=== PATIENT | female | born 1940 | race Caucasian/White ===

== ENCOUNTER → 2024-09-25 | Outpatient (CLI) | payer MEDICARE, BC, SELFPAY ==
[2024-09-25 13:39] LABS: Free T4 (Free Thyroxine) 1.24 ng/dL (0.89-1.76); Thyroid Stimulating Hormone 3.51 uIU/mL (0.55-4.78)
== END | disposition home or self-care (01) ==
LOC: COPL 12:48
PROVIDERS: PCP Family Medicine; Referring Provider Family Medicine; Visit Provider Family Medicine
DX: E03.9 Hypothyroidism, unspecified (principal)
CPT/HCPCS: 36415; 84439; 84443

== ENCOUNTER 2024-10-13 06:41 | Day surgery (SDC) | payer MEDICARE, BC, SELFPAY ==
[2024-10-11 16:52] VITALS: BMI 24.3
--- NOTE | 2024-10-12 07:00 | EKG_ITS ---
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
[2024-10-12 13:18] LABS: Basophils % (Auto) 1 % (0-2.5); Eosinophils # (Auto) 0.1 Thou/mm3 (0.0-0.5); Eosinophils % (Auto) 1 % (0-10); Hematocrit 36.5 % (36.0-46.0); Hemoglobin 11.9 g/dL (12.0-16.0); Immature Granulocytes % (Auto) 0 % (0-0); Immature Granulocytes Auto 0.01 Thou/mm3 (0.00-0.00); Lymphocytes # (Auto) 1.8 Thou/mm3 (1.0-4.8); Lymphocytes % (Auto) 37 % (10-50); Mean Corpuscular HGB Conc 32.6 g/dl (31.0-37.0); Mean Corpuscular Hemoglobin 31.5 pg (25.0-35.0); Mean Corpuscular Volume 97 fL (80-100); Monocytes # (Auto) 0.5 Thou/mm3 (0.0-0.8); Monocytes % (Auto) 11 % (0-12); Neutrophils # (Auto) 2.4 Thou/mm3 (1.8-7.7); Neutrophils % (Auto) 50 % (37-80); Nucleated Red Blood Cell % 0 /100 WBC (0); Platelet Count 151 Thou/mm3 (140-440); RDW Standard Deviation 49.5 fL (36.4-46.3); Red Blood Count 3.78 Miln/mm3 (4.00-5.20); White Blood Count 4.9 Thou/mm3 (3.6-11.0)
[2024-10-12 13:39] LABS: Partial Thromboplastin Time 24.2 Seconds (22.0-36.0); Prothrombin Time 11.2 Seconds (9.0-12.2)
[2024-10-12 13:40] LABS: Anion Gap 6 (7-16); BUN/Creatinine Ratio 16 Ratio (12-20); Blood Urea Nitrogen 16 mg/dL (9-23); Calcium 9.4 mg/dL (8.3-10.6); Carbon Dioxide 23.5 mMol/L (20.0-31.0); Chloride 109 mMol/L (98-107); Estimated Creatinine Clearance 42.2 mL/min (>60); Glucose 96 mg/dL (74-106); Osmolality,Calculated 276 (275-295); Potassium 4.2 mMol/L (3.4-5.1); Sodium 138 mMol/L (136-145); eGFR 56 See Note
[2024-10-13] VITALS (15 sets, daily range): BP systolic 128–167; BP diastolic 53–86; PULSE 64–84; RESP 12–20; TEMP 36.7–37; O2SAT 92–97; BMI 24.5
[2024-10-13] MEDS: HYDROCORTISONE SOD SUCC INJ 100 MG VIAL IV (07:42)
[2024-10-13] MEDS: FAMOTIDINE INJ 10 MG/ML VIAL 2 ML 20 MG IVP (07:42)
[2024-10-13] MEDS: DiphenhydrAMINE INJ 50 MG/ML VIAL IVP (07:42)
[2024-10-13] MEDS: HYDROcodone/APAP 10/325 TAB PO (12:43)
--- NOTE | 2024-10-13 15:16 | ESOP_ITS ---
RE: AUSTIN LÓPEZ : 1940 DATE OF OPERATION: 10/13/2024 PROCEDURE PERFORMED: 1. Diagnostic left heart cardiac catheterization, selective coronary angiogram, left ventricular angiogram, CPT 09103. 2. Ultrasound-guided access, right radial artery. 3. Iliofemoral angiogram. 4. Conscious sedation 1 hour duration. DIAGNOSES: Coronary artery disease, abnormal stress test, angina pectoris, previous stent placement. HISTORY AND INDICATIONS: The patient is an 84-year-old female with past medical history of CAD, stent placement in the LAD. She has been doing well until recently. She has had recurrent chest tightness, shortness of breath on exertion. Nuclear scan and stress test was abnormal showed evidence of significant perfusion defect suspicious for coronary artery disease and obstructive disease, hence coronary angiogram, cardiac catheterization recommended to assess the patient is a candidate for intervention and revascularization. DESCRIPTION OF PROCEDURE: The patient brought to the cardiac catheterization laboratory. She was given 2 mg of Versed and 50 mcg fentanyl for sedation. Right radial approach initially was taken. Right radial artery cannulated by micropuncture technique. Ultrasound guidance was used and 6-Uzbek Glidesheath was introduced. I was unable to advance the Glidewire hence I did angiogram of the right radial artery showed evidence of radial artery extreme tortuosity almost 180-degree loop in the small vessel, hence I decided to pursue a femoral approach. Next, a right femoral approach was taken. Right femoral artery was cannulated by micropuncture technique after local anesthesia and 5-Uzbek sheath introduced. Selective right and left coronary angiogram was performed using FR4, FL4 diagnostic catheters. Left heart catheterization and LV angiogram performed by FR4 diagnostic catheters. Subsequently, iliofemoral angiogram performed. Site of cannulation was close to bifurcation, calcified artery hence manual compression was applied. Cardiac catheterization showed the following findings. HEMODYNAMICS: Left ventricular pressure is 160/16 mmHg. Aortic pressure 160/60 mmHg. No gradient across the aortic valve. Left ventricular angiogram showed normal left ventricular wall motion, ejection fraction 70%. Coronary artery angiogram showed following findings: Right coronary artery large and dominant appeared normal. Left coronary system. Left main coronary artery is normal. Left anterior descending artery showed a stent in the mid LAD after diagonal branch appears normal. No restenosis. Diagonal branch showed evidence of mild stenosis, 20% to 30% narrowing. Circumflex artery is non-dominant gives off one large obtuse marginal branch appears normal. SUMMARY OF FINDINGS: 1. Widely patent stent involving mid left anterior descending artery. 2. Normal left ventricular systolic function, EF of 70%. 3. Widely patent RCA, circumflex artery no_ significant progression of CAD. 4. Mild disease involving diagonal branch, insignificant. RECOMMENDATIONS: Continue maximum medical management. The patient's symptoms are due to stress. Reassured by excellent prognosis. DT: 12:54:28 TT: 15:15:00 Ref: [id number] - TID: [id number] [facility]
== END 2024-10-13 14:30 | disposition home or self-care (01) ==
PROVIDERS: PCP Family Medicine; Referring Provider Internal Medicine Cardiovascular Disease; Visit Provider Internal Medicine Cardiovascular Disease
PROC: (CPT 93458; principal; 2024-10-13 07:30)
DX: I25.118 Atherosclerotic heart disease of native coronary artery with other forms of angina pectoris (principal); Z95.5 Presence of coronary angioplasty implant and graft
CPT/HCPCS: 93458; G0278; 36415; 80048; 85025; 85610; 85730; 93005; 99152; 99153; A4649; C1769; C1887; C1894; J0360; J0461; J1200; J1643; J1720; J2250; J2310; J2371; J3010; J3490; Q9967; A9270; J1644; J2305

== ENCOUNTER → 2024-12-27 | Outpatient (CLI) | payer MEDICARE, BC, SELFPAY ==
[2024-12-27 14:55] LABS: Collection Type, Urine Clean Catch
[2024-12-27 16:58] LABS: Bacteria,Urine 1+; Bilirubin,Urine Negative (Negative); Blood,Urine Negative (Negative); Clarity,Urine Turbid (Clear/Hazy); Color,Urine Yellow (Lt Yel-Yel); Glucose, Urine Negative (Negative); Hyaline Casts,Urine < 1 /hpf (0-1); Ketones,Urine Negative (Negative); Leukocyte Esterase,Urine Positive (Negative); Nitrite,Urine Positive (Negative); PH,Urine 5.5 (5.0-7.0); Protein,Urine Trace (Neg - Trace); RBC,Urine 1 /hpf (0-3); Specific Gravity,Urine 1.026 (1.001-1.035); Squamous Epithelial Cell,Urine 5 /hpf (0-5); Urobilinogen,Urine Negative mg/dL (0.0-1.0); WBC,Urine 23 /hpf (0-5)
== END | disposition home or self-care (01) ==
LOC: SLDO 14:48
PROVIDERS: Referring Provider Family Medicine; Visit Provider Family Medicine
DX: N30.00 Acute cystitis without hematuria (principal)
CPT/HCPCS: 81001; 87077; 87086; 87186

== ENCOUNTER → 2025-01-19 | Outpatient (CLI) | payer MEDICARE, BC, SELFPAY ==
[2025-01-19 09:49] LABS: Cardiac Risk Estimate 3.4 RATIO (3.7-5.6); Cholesterol 137 mg/dL (132-200); HDL Cholesterol 40 mg/dL (40-60); LDL Cholesterol,Calculated 73 mg/dL (0-130); Triglycerides 120 mg/dL (30-150)
== END | disposition home or self-care (01) ==
LOC: COPL 08:38
PROVIDERS: PCP Family Medicine; Referring Provider Internal Medicine Cardiovascular Disease; Visit Provider Internal Medicine Cardiovascular Disease
DX: I25.118 Atherosclerotic heart disease of native coronary artery with other forms of angina pectoris (principal); E78.00 Pure hypercholesterolemia, unspecified; Z95.5 Presence of coronary angioplasty implant and graft
CPT/HCPCS: 36415; 80061

== ENCOUNTER 2025-03-31 18:30 | Emergency (ER) | payer MEDICARE, BC, SELFPAY ==
[2025-03-31 18:36] VITALS: BP 145/86; PULSE 74; RESP 18; TEMP 37.2; O2SAT 97
--- NOTE | 2025-03-31 18:37 | PD.EDHA ---
ED Headache RME/HPI General Chief Complaint: Headache Stated Complaint: HEADACHE Time Seen by Provider: 03/31/25 19:13 Arrival date/time: 03/31/25 18:30 RME / HPI RME / HPI Narrative: This section includes all my notes and documentations, including HPI, PE, and ED course. Bradley Brandon MD HPI: 84 y/o female with Hx of Hypercholesterolemia, Hypertension, Kidney Stones, Endometriosis, Arthritis, Hypoglycemia, Depression, and Coronary Stent presents to ED BIBA from home c/o severe headache x 4 days and intermittent chest pain x 3 days. Patient's chest pain began suddenly while driving her daughter from her knee replacement surgery. It lasted 10 minutes before resolving but states the pain was the worst it had been over the span of the [address] Joselyn Lindsay, who attributed her symptoms to dehydration, and advised patient to see Dr. Braxton, her funds development director, if chest pain persisted. She was informed that no clot was present and a new stent was not needed at this time. Chest pain is now a 0/10 and has been more mild over the last 2 days. Patient's family bought her Liquid IV electrolyte supplement, but she was not able to keep it down. She also reports associated abdominal pain and back pain. Patient noted her blood pressure at 220/80 something and took her Avapro at 6:05 PM, approximately 10 minutes prior to EMS arrival. No other complaints. ROS: All negative except as documented in HPI. Physical Exam: General: Alert and oriented. No acute distress when remaining still. High BP noted. Eyes: Conjunctivae and lids clear. EOMI. PERRL. ENT: No nasal congestion. Pharynx normal. Tympanic membrane normal bilaterally. Neck: Supple. No carotid bruit. No JVD. Heart: RRR. Lungs: No respiratory distress. Good air movement. No significant rhonchi, wheezing, rales. Chest: No tenderness. Abdomen: Soft with diffuse tenderness, difficult to localize. Normal bowel sounds. No distension. No rebound or guarding. Back: No CVA tenderness. Legs: No clubbing, cyanosis, edema. Skin: Warm and dry. Neuro: Alert and oriented X 3. Cranial Nerves II-XII grossly intact. No peripheral motor deficits. I reviewed EMS notes. I reviewed all diagnostic test results. My interpretation of the EKG: Sinus rhythm (71 bpm) with left BBB, no change from previous EKG. My interpretation of the chest x-ray is NAD. My review of the Head/Brain CT report is NAD. My review of the Chest/Abdomen/Pelvis CT report is: Suspicious for small gallstones. Perinephric stranding, consider urinary tract infection. My review of the Gall Bladder US report is: Primary hepatocellular disease. Blood tests unremarkable. UA showed 3+ bacteria and yeast. COVID/influenza negative. At this point, diagnoses include UTI and headache and gallstones and high BP. Treatment here included Tylenol w/ Codeine, Zofran, Rocephin, Catapres, Diflucan. Significant improvement noted. Recommended more outpatient care. Based on my best medical judgment, made decision no further evaluation or treatment indicated at this time. Patient understands and agrees to the discharge instructions customized and printed, see below. Discharge instructions from Dr. Brandon: 1. After extensive evaluation, there is no life-threatening condition. Such as stroke or brain tumor or heart attack. But you have severe UTI (early kidney infection) and gallstones. 2. Take cefdinir to kill the germs causing your UTI.? Increase oral fluid to flush it out.? Maintain clear urine.? If dark or yellow, increase oral fluid. 3. Zofran for nausea/vomiting.? 4 You need gallbladder to help digest fatty foods. So avoid all fatty and oily and greasy and buttery and dairy foods.? This usually means take out and fast food restaurants. Tylenol with codeine for severe pain.?? 5.. See a private doctor on 04/02/2025 for recheck.? Ask to review all test results and official radiology reports, to make sure you receive all necessary follow-ups and monitoring, including final urine culture results from today. And if you are considering elective surgery for your gallbladder, ask for referral to see a surgeon. 6. Seek immediate medical care with worsening, fever, or with any concerns. Bradley Brandon MD Related Data Home Medications ?Medication ?Instructions ?Recorded ?Confirmed [place]-3 Fatty Acids (OTC) * (FISH 500 mg PO BID #0 caps 11/14/15 OIL (OTC) *) ergocalciferol (vitamin D2) 1,250 ##24 11/14/15 mcg (50,000 unit) capsule (Vitamin D2) aspirin 81 mg tablet,delayed 81 mg PO QDAY 08/25/23 10/13/24 release famotidine 40 mg tablet 20 mg PO QDAY 08/25/23 10/13/24 hydrocodone 10 mg-acetaminophen 0.5 tab PO PRN PRN Pain 08/25/23 10/13/24 325 mg tablet levothyroxine 75 mcg tablet 50 mcg PO QDAY 08/25/23 10/13/24 pantoprazole 40 mg tablet,delayed 40 mg PO QDAY 08/25/23 10/13/24 release docusate sodium 50 mg capsule 50 mg PO PRN PRN Constipation 10/13/24 10/13/24 escitalopram oxalate 10 mg tablet 10 mg PO QDAY 10/13/24 10/13/24 irbesartan 150 mg tablet 150 mg PO QDAY 10/13/24 10/13/24 magnesium 200 mg tablet 400 mg PO QDAY 10/13/24 10/13/24 mecobalamin (vitamin B12) 1,000 1,000 mcg PO DAILY 10/13/24 10/13/24 mcg chewable tablet (B12 Active) Previous Rx's ?Medication ?Instructions ?Recorded acetaminophen 300 mg-codeine 30 mg 2 tab PO Q8H PRN pain #20 tabs 03/31/25 tablet cefdinir 300 mg capsule 300 mg PO BID #14 caps 03/31/25 fluconazole 200 mg tablet 200 mg PO ONCE PM 7 weeks #2 tabs 03/31/25 (Diflucan) ondansetron 4 mg disintegrating 4 mg PO TID PRN nausea and 03/31/25 tablet vomiting 30 days #10 tabs Allergies Allergy/AdvReac Type Severity Reaction Status Date / Time Nlgonmb-REH-AcE Reductase Allergy Mild Gastrointestinal Verified 08/25/23 08:47 Inhibitor Upset codeine AdvReac Mild Nausea Verified 08/25/23 08:47 CONTRAST DYE Allergy Severe Rash Uncoded 08/25/23 08:47 Review of Systems Review of Systems Systems Reviewed: All systems reviewed, normal except as documented Past Medical History Past Medical History CARDIAC: Positive Cardiac Disorders, Hypercholesterolemia and Hypertension (takes medication PRN) GENITOURINARY: Positive Genitourinary Disorders and Kidney Stones REPRODUCTIVE: Positive Endometriosis and Previous Pregnancies (4) MUSCULOSKELETAL: Positive Musculoskeletal Disorders and Arthritis ENDOCRINE: Positive Endocrine Disorders and Hypoglycemia HEMATOLOGIC: Positive Blood Disorders and Anemia (resolved) PSYCHO/SOCIAL: Positive Depression (recent family loss) OTHER HISTORY: Positive Radiation Therapy (for basal cell carcinoma skin CA on chest 2022) and Cancer Surgical History SURGICAL: Positive Cardiac Surgery, Coronary Stent (X1), Angiogram, Abdominal Surgery, Gastric Bypass Surgery, Joint Replacement, Hysterectomy and Section (x4) ED Exam Narrative Physical exam: Refer to HPI above Course Course Course Narrative: CXR is ordered for determining the etiology of shortness of breath. Quality Measures none Orders Category Date Time Status Bedside COVID-19 Antigen Test NOW Care 03/31/25 18:46 Active Bedside Influenza A&B Antigen Test NOW Care 03/31/25 18:46 Completed EKG (ED ONLY) *Do not use* NOW Care 03/31/25 18:47 Completed Straight [In and Out Catheter] X1 Care 03/31/25 20:[address] chest abdomen pelvis wo Stat Exams 03/31/25 18:[address] head/brain wo con Stat Exams 03/31/25 18:47 Completed EKG (ED Only) Stat Exams 03/31/25 18:46 Draft US gall bladder Stat Exams 03/31/25 18:48 Completed XR chest 1V portable Stat Exams 03/31/25 18:47 Completed Amylase Stat Lab 03/31/25 19:01 Completed Bilirubin,Direct Stat Lab 03/31/25 19:01 Completed CBC Stat Lab 03/31/25 19:01 Completed CMP [Comprehensive Metabolic Panel] Stat Lab 03/31/25 19:01 Completed Free T4 (Free Thyroxine) Stat Lab 03/31/25 19:01 Completed Lipase Stat Lab 03/31/25 19:01 Completed Magnesium Stat Lab 03/31/25 19:01 Completed TSH [Thyroid Stimulating Hormone] Stat Lab 03/31/25 19:01 Completed Troponin I Stat Lab 03/31/25 19:01 Completed UA, C/S IF [Urinalysis, C/S if Indicated] Stat Lab 03/31/25 20:11 Completed Urine Culture Stat Lab 03/31/25 20:11 Received ACETAMINOPHEN w/COD 300-30 [Tylenol w/Cod #3] Med 03/31/25 18:45 Discontinued 2 tab PO X1 ONE Fluconazole/Ns 200 mg Ivpb [Diflucan/Ns Ivpb] Med 03/31/25 21:13 Discontinued 200 mg in 100 ml IV X1 Ondansetron Odt [Zofran Odt] Med 03/31/25 18:45 Discontinued 4 mg PO X1 ONE Sodium Chloride 0.9% 1000 ml [Ns] 1,000 ml Med 03/31/25 20:16 Discontinued IV 999 mls/hr cefTRIAXone/D5w 1gm IV premix [Rocephin/D5w 1gm IV Med 03/31/25 21:12 Discontinued premix] 1 g in 50 ml IV X1 cloNIDine HCL [Catapres] Med 03/31/25 20:15 Discontinued 0.2 mg PO X1 ONE Vital Signs Vital signs: Vital Signs Temperature 98.9 F 03/31/25 18:36 Pulse Rate 74 03/31/25 18:36 Respiratory Rate 18 03/31/25 18:36 Blood Pressure 145/86 H 03/31/25 18:36 Pulse Oximetry (%) 97 03/31/25 18:36 Oxygen Delivery Method Room Air 03/31/25 18:36 Headache MDM Narrative MDM Narrative:: Scribe Attestation: Joyce Lovett, am scribing for and in the presence of Dr. Brandon. Provider Notation: Although this document has been carefully reviewed, there may still be some phonetic and other typographical errors.? These errors are purely grammatical due to imperfections in the software program and should not be construed in any way to? compromise the substance of the patient's medical care during this visit. 84 y/o female with Hx of Hypercholesterolemia, Hypertension, Kidney Stones, Endometriosis, Arthritis, Hypoglycemia, Depression, and Coronary Stent presents to ED BIBA from home c/o severe headache x 4 days and intermittent chest pain x 3 days. Patient's chest pain began suddenly while driving her daughter from her knee replacement surgery. It lasted 10 minutes before resolving but states the pain was the worst it had been over the span of the [address] Joselyn Lindsay, who attributed her symptoms to dehydration, and advised patient to see Dr. Braxton, her funds development director, if chest pain persisted. She was informed that no clot was present and a new stent was not needed at this time. Chest pain is now a 0/10 and has been more mild over the last 2 days. Patient's family bought her Liquid IV electrolyte supplement, but she was not able to keep it down. She also reports associated lower abdominal pain and back pain. Patient noted her blood pressure at 220/80 something and took her Avapro at 6:05 PM, approximately 10 minutes prior to EMS arrival. No other complaints. Patient data External records reviewed:: [facility] previous records (No prior ED records available for review.) and EMS form Clinical information provided by:: patient and EMS Social determinants that could affect healthcare access:: none Patient has the following chronic illnesses:: Hypercholesterolemia, Hypertension, Kidney Stones, Endometriosis, Arthritis, Hypoglycemia, Depression How is presenting disease/condition affected by chronic disease/condition?: exacerbated by Evaluation data The following diagnostics were reviewed and interpreted by me:: EKG tracing(s) (My interpretation of the EKG: Sinus rhythm (71 bpm) with left BBB, no change from previous EKG. Bradley Brandon MD) Lab and/or radiology exams considered but not ordered:: None Interpretation Summary: I reviewed all diagnostic test results. My interpretation of the EKG: Sinus rhythm (71 bpm) with left BBB, no change from previous EKG. My interpretation of the chest x-ray is NAD. My review of the Head/Brain CT report is NAD. My review of the Chest/Abdomen/Pelvis CT report is: Suspicious for small gallstones. Perinephric stranding, consider urinary tract infection. My review of the Gall Bladder US report is: Primary hepatocellular disease. Blood tests unremarkable. UA showed 3+ bacteria and yeast. COVID/influenza negative. Medications / Prescriptions Medications or Prescriptions considered but not ordered:: None Medication administrations:: Medication Administration History Discontinued Medications Acetaminophen/Codeine Phosphate (Acetaminophen W/Cod 300-30 Tablet) 2 tab PO X1 ONE Stop: 03/31/25 18:46 Last Admin: 03/31/25 20:00 Dose: 2 tab Documented By: EE Clonidine (Clonidine Hcl 0.1 Mg Tablet) 0.2 mg PO X1 ONE Stop: 03/31/25 20:16 Last Admin: 03/31/25 20:33 Dose: 0.2 mg Documented By: EE Sodium Chloride (Ns) 1,000 mls @ 999 mls/hr IV .Q1H1M ONE Stop: 03/31/25 21:16 Last Infusion: 03/31/25 21:44 Dose: Infused Documented By: Admin: 03/31/25 20:34 Dose: 999 mls/hr Documented By: EE Ceftriaxone Sodium/Dextrose (Rocephin/D5w 1gm Iv Premix) 1 g in 50 mls @ 100 mls/hr IV X1 ONE Stop: 03/31/25 21:41 Last Infusion: 03/31/25 22:22 Dose: Infused Documented By: Admin: 03/31/25 21:41 Dose: 100 mls/hr Documented By: CB Fluconazole (Diflucan/Ns Ivpb) 200 mg in 100 mls @ 100 mls/hr IV X1 ONE Stop: 03/31/25 22:12 Last Admin: 03/31/25 22:51 Dose: 100 mls/hr Documented By: CVL Ondansetron HCl (Ondansetron Odt 4 Mg Tabrap) 4 mg PO X1 ONE; Protocol Stop: 03/31/25 18:46 Last Admin: 03/31/25 20:00 Dose: 4 mg Documented By: EE Tylenol with Codeine, Zofran, Rocephin, Catapres, Diflucan. Consultations Consultation(s) initiated? (list below): No Diagnosis Differential diagnosis headache: migraine, tension headache, subarachnoid hemorrhage, headache, meningitis, sinusitis and other (Costochondritis, Pleurisy, GERD, Gall Stone) Most likely diagnosis given after review of the tests above:: diagnoses include UTI and headache and gallstones and high BP. Admission Indicated Admission indicated?: not indicated Explain why admission is indicated or not indicated:: With significant improvement, there was no indication for admission. Admission Request Was there a request for admission?: No Disposition Plan Disposition Plan: Discharge Discharge Attestation Discharge Attestation: The patient and all family members were given an opportunity to ask questions and understood the discharge instructions. Discharge instructions specifically effects, indications for sooner follow up or return to the emergency department, and the expected course of current diagnosis. Patient condition: Stable Discharge Plan Plan Patient Disposition: HOME (Self Care) Prescriptions/Referrals Prescriptions/Med Rec: New acetaminophen-codeine 300-30 mg tablet 2 tab PO Q8H MDD 6 PRN (Reason: pain) Qty: 20 0RF ondansetron 4 mg tablet,disintegrating 4 mg PO TID PRN (Reason: nausea and vomiting) 30 Days Qty: 10 0RF cefdinir 300 mg capsule 300 mg PO BID Qty: 14 0RF fluconazole [Diflucan] 200 mg tablet 200 mg PO ONCE PM 49 Days Qty: 2 0RF Rx Instructions: Take one pill once then repeat after 7 days. No Action ergocalciferol (vitamin D2) [Vitamin D2] 50,000 UNIT capsule Qty: 24 [place]-3 Fatty Acids (OTC) * (FISH OIL (OTC) *) 500 MG capsule 500 mg PO BID Qty: 0 famotidine 40 mg tablet 20 mg PO QDAY Patient Comments: TAKE ONE TABLET BY MOUTH EVERY DAY AT BED TIME HEARTBURN hydrocodone-acetaminophen 10-325 mg tablet 0.5 tab PO PRN PRN (Reason: Pain) Patient Comments: TAKE ONE TABLET BY MOUTH EVERY 4 TO 6 HOURS NEEDED FOR PAIN aspirin 81 mg Tablet,Delayed Release (Dr/Ec) 81 mg PO QDAY levothyroxine 75 mcg tablet 50 mcg PO QDAY Patient Comments: TAKE ONE TABLET BY MOUTH EVERY MORNING ON EMPTY STOMACH FOR THYROID pantoprazole 40 mg tablet,delayed release (DR/EC) 40 mg PO QDAY Patient Comments: TAKE ONE TABLET BY MOUTH EVERY DAY HEARTBURN FOR GASTRITIS docusate sodium 50 mg Capsule 50 mg PO PRN PRN (Reason: Constipation) magnesium 200 mg Tablet 400 mg PO QDAY escitalopram oxalate 10 mg Tablet 10 mg PO QDAY mecobalamin (vitamin B12) [B12 Active] 1,000 mcg Tablet,Chewable 1,000 mcg PO DAILY irbesartan 150 mg Tablet 150 mg PO QDAY Referrals: No Primary/Family,Physician [Referring Provider] - In 1 week Problem List Clinical Impression: UTI (urinary tract infection), Gallstones Patient/Caregiver Discharge Instructions Discharge Activity: activity as tolerated Education Materials: ED Gallstones with Biliary Colic, ED CYSTITIS Female Adult Additional Instructions: Discharge instructions from Dr. Brandon: 1. After extensive evaluation, there is no life-threatening condition. Such as stroke or brain tumor or heart attack. But you have severe UTI (early kidney infection) and gallstones. 2. Take cefdinir to kill the germs causing your UTI.? Increase oral fluid to flush it out.? Maintain clear urine.? If dark or yellow, increase oral fluid. 3. Zofran for nausea/vomiting.? 4 You need gallbladder to help digest fatty foods. So avoid all fatty and oily and greasy and buttery and dairy foods.? This usually means take out and fast food restaurants. Tylenol with codeine for severe pain.?? 5.. See a private doctor on 04/02/2025 for recheck.? Ask to review all test results and official radiology reports, to make sure you receive all necessary follow-ups and monitoring, including final urine culture results from today. And if you are considering elective surgery for your gallbladder, ask for referral to see a surgeon. 6. Seek immediate medical care with worsening, fever, or with any concerns. Print Language: Divehi Stand Alone Forms: [employer] Info., Patient Portal Info Letter
--- NOTE | 2025-03-31 18:46 | EKG_ITS ---
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pdf
--- NOTE | 2025-03-31 18:47 | XR_ITS ---
Examination: CT chest, without intravenous contrast. CT abdomen, without intravenous contrast. CT pelvis, without intravenous contrast. 2-D sagittal and coronal reconstructions. 3-D reconstructions. Date and time of exam:March 31, 2025, 1939 hours INDICATIONS: Chest and abdominal pain beginning 3 days ago CTDI vol (mgy) 11 DLP (MGycm)831 Technique: Multiple CT images, 3.0 mm slice thickness, obtained chest, abdomen, pelvis, with the high-resolution 64 slice scanner.. Sagittal and coronal 2-D reconstructions are obtained. 3-D reconstructions Low dose protocols were performed. One or more of the following dose reduction techniques were used; automated exposure control, adjustment of the mA and/or KV according to patient size, use of iterative reconstruction technique. 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
--- NOTE | 2025-03-31 18:47 | XR_ITS ---
Examination: AP chest single view TECHNIQUE: AP portable semiupright chest single view Date and time: March 31, 2025 at 1748 hours INDICATIONS: Shortness of breath chest pain radiating 3 days ago. FINDINGS: Mild prominence left ventricle No pneumonia or pulmonary edema Prominent osteopenia IMPRESSION: No pneumonia or pulmonary edema
--- NOTE | 2025-03-31 18:47 | XR_ITS ---
Examination: CT brain head without contrast. 2-D sagittal coronal reconstructions Date and time of exam:March 31, 2025 1937 hours Headaches beginning 3 days ago CTDI: vol (mGy):51 DLP: (mGycm): 987 Technique: Multiple CT axial sections of the brain have been obtained, 5 mm slice thickness. Contrast has not been administered. 2-D sagittal, coronal reconstructions have been obtained Low dose protocols were performed. One or more of the following dose reduction techniques were used; automated exposure control, adjustment of the mA and/or KV according to patient size, use of iterative reconstruction technique. Findings: No significant ventricular enlargement. Intra-axial or extra-axial hemorrhage density is not seen. No mass effect or midline shift Basal cisterns are not remarkable. Fourth ventricle is midline. Cranial vault intact. Impression: Negative for acute hemorrhage, mass effect or midline shift
--- NOTE | 2025-03-31 18:48 | XR_ITS ---
Examination: Abdomen sonogram, Limited Date and time of exam: March 31, 2025 2135 hours INDICATIONS: Right upper abdominal pain beginning 3 weeks ago Technique: Real-time perkins scale transabdominal sonographic images of the upper abdomen obtained. Findings: Normal gallbladder Normal common bile duct 0.4 cm Pancreatic head 2.5 cm Liver 13.3 cm fatty infiltration monitor contour Normal hepatopedal portal venous flow Patent IVC IMPRESSION: Primary hepatocellular disease
[2025-03-31 19:10] LABS: Basophils % (Auto) 1 % (0-2.5); Eosinophils % (Auto) 1 % (0-10); Hematocrit 32.2 % (36.0-46.0); Immature Granulocytes % (Auto) 0 % (0-0); Immature Granulocytes Auto 0.01 Thou/mm3 (0.00-0.00); Lymphocytes # (Auto) 0.7 Thou/mm3 (1.0-4.8); Lymphocytes % (Auto) 22 % (10-50); Mean Corpuscular HGB Conc 34.2 g/dl (31.0-37.0); Mean Corpuscular Hemoglobin 31.9 pg (25.0-35.0); Mean Corpuscular Volume 93 fL (80-100); Monocytes # (Auto) 0.4 Thou/mm3 (0.0-0.8); Monocytes % (Auto) 12 % (0-12); Neutrophils % (Auto) 64 % (37-80); Nucleated Red Blood Cell % 0 /100 WBC (0); Platelet Count 142 Thou/mm3 (140-440); RDW Standard Deviation 45.5 fL (36.4-46.3); Red Blood Count 3.45 Miln/mm3 (4.00-5.20); White Blood Count 3.2 Thou/mm3 (3.6-11.0)
[2025-03-31 19:27] VITALS: BMI 24.3
[2025-03-31 19:37] LABS: Alanine Aminotransferase 10 U/L (10-49); Albumin, Serum 3.8 gm/dL (3.4-4.8); Albumin/Globulin Ratio 1.8 (1.2-2.2); Alkaline Phosphatase 75 U/L (46-116); Amylase 57 U/L (30-118); Anion Gap 9 (7-16); Aspartate Amino Transferase 16 U/L (0-34); BUN/Creatinine Ratio 15 Ratio (12-20); Bilirubin,Direct 0.2 mg/dL (0.0-0.3); Bilirubin,Total 0.5 mg/dL (0.3-1.2); Blood Urea Nitrogen 15 mg/dL (9-23); Calcium 8.6 mg/dL (8.3-10.6); Calcium (Corrected) 8.8 mg/dL (8.5-10.1); Carbon Dioxide 25.9 mMol/L (20.0-31.0); Chloride 105 mMol/L (98-107); Estimated Creatinine Clearance 42.2 mL/min (>60); Globulin 2.1 gm/dL (2.3-3.5); Glucose 160 mg/dL (74-106); Lipase 28 U/L (12-53); Magnesium 1.9 mg/dL (1.6-2.6); Osmolality,Calculated 283 (275-295); Potassium 4.5 mMol/L (3.4-5.1); Sodium 140 mMol/L (136-145); Thyroid Stimulating Hormone 8.16 uIU/mL (0.55-4.78); Total Protein 5.9 gm/dL (5.7-8.2); Troponin I < 0.020 ng/mL (0.0-0.045); eGFR 56 See Note
[2025-03-31] MEDS: ONDANSETRON ODT 4 MG TABRAP PO (20:00)
[2025-03-31] MEDS: ACETAMINOPHEN w/COD 300-30 TABLET 2 TAB PO (20:00)
[2025-03-31 20:12] VITALS: BP 181/101; PULSE 66; RESP 18; O2SAT 100
[2025-03-31 20:33] VITALS: BP 181/101; PULSE 82
[2025-03-31 20:33] LABS: Collection Type, Urine Clean Catch
[2025-03-31] MEDS: cloNIDine HCL 0.1 MG TABLET 0.2 MG PO (20:33)
[2025-03-31] MEDS: SODIUM CHLORIDE 0.9% 1000 ML 1,000 ML 999 ML IV (20:34)
[2025-03-31 20:56] LABS: Bacteria,Urine 3+; Bilirubin,Urine Negative (Negative); Blood,Urine Negative (Negative); Budding Yeast,Urine Present; Clarity,Urine Clear (Clear/Hazy); Color,Urine Lt-Yellow (Lt Yel-Yel); Glucose, Urine Negative (Negative); Hyphae Yeast Present; Ketones,Urine 1+ (Negative); Leukocyte Esterase,Urine Negative (Negative); Nitrite,Urine Negative (Negative); Protein,Urine Negative (Neg - Trace); RBC,Urine 3 /hpf (0-3); Specific Gravity,Urine 1.017 (1.001-1.035); Squamous Epithelial Cell,Urine 1 /hpf (0-5); Urobilinogen,Urine Negative mg/dL (0.0-1.0); WBC,Urine 1 /hpf (0-5)
[2025-03-31 20:57] LABS: Culture Indicated,Urine Yes
[2025-03-31 21:19] VITALS: BP 175/76; PULSE 60; RESP 18; TEMP 36.8; O2SAT 95
[2025-03-31] MEDS: cefTRIAXone/D5w 1gm IV premix 1 G/50 ML BAG IV (21:41)
[2025-03-31] MEDS: FLUCONAZOLE/NS 200 MG IVPB 200 MG/100 ML BAG 100 MG IV (22:51)
[2025-04-01 00:09] VITALS: BP 162/83; PULSE 80; RESP 16; TEMP 36.8; O2SAT 98
== END 2025-04-01 00:11 | disposition home or self-care (01) ==
PROVIDERS: Emergency Provider Emergency Medicine; PCP Family Medicine
DX: N39.0 Urinary tract infection, site not specified (principal); K80.20 Calculus of gallbladder without cholecystitis without obstruction; E78.00 Pure hypercholesterolemia, unspecified; I10 Essential (primary) hypertension; F32.A Depression, unspecified
CPT/HCPCS: 36415; 70450; 71045; 71250; 74176; 76705; 80053; 81001; 82150; 82248; 83690; 83735; 84439; 84443; 84484; 85025; 87077; 87086; 87186; 87400; 87811; 93005; 96361; 96365; 96367; 99284; J0696; J1450; J7030; Q0162; A9270

== ENCOUNTER → 2025-04-11 | Outpatient (CLI) | payer MEDICARE, BC, SELFPAY ==
[2025-04-11 11:15] LABS: Basophils % (Auto) 1 % (0-2.5); Eosinophils % (Auto) 1 % (0-10); Hematocrit 39.8 % (36.0-46.0); Hemoglobin 12.9 g/dL (12.0-16.0); Immature Granulocytes % (Auto) 0 % (0-0); Immature Granulocytes Auto 0.01 Thou/mm3 (0.00-0.00); Lymphocytes # (Auto) 1.4 Thou/mm3 (1.0-4.8); Lymphocytes % (Auto) 31 % (10-50); Mean Corpuscular HGB Conc 32.4 g/dl (31.0-37.0); Mean Corpuscular Hemoglobin 32.2 pg (25.0-35.0); Mean Corpuscular Volume 99 fL (80-100); Monocytes # (Auto) 0.5 Thou/mm3 (0.0-0.8); Monocytes % (Auto) 12 % (0-12); Neutrophils # (Auto) 2.4 Thou/mm3 (1.8-7.7); Neutrophils % (Auto) 56 % (37-80); Nucleated Red Blood Cell % 0 /100 WBC (0); Platelet Count 211 Thou/mm3 (140-440); RDW Standard Deviation 49.9 fL (36.4-46.3); Red Blood Count 4.01 Miln/mm3 (4.00-5.20); White Blood Count 4.4 Thou/mm3 (3.6-11.0)
[2025-04-11 11:59] LABS: Alanine Aminotransferase 11 U/L (10-49); Albumin, Serum 4.3 gm/dL (3.4-4.8); Albumin/Globulin Ratio 1.9 (1.2-2.2); Alkaline Phosphatase 73 U/L (46-116); Anion Gap 11 (7-16); BUN/Creatinine Ratio 20 Ratio (12-20); Bilirubin,Total 0.3 mg/dL (0.3-1.2); Blood Urea Nitrogen 26 mg/dL (9-23); Calcium 9.4 mg/dL (8.3-10.6); Calcium (Corrected) 9.4 mg/dL (8.5-10.1); Carbon Dioxide 26.5 mMol/L (20.0-31.0); Chloride 105 mMol/L (98-107); Creatinine (Component) 1.3 mg/dL (0.6-1.3); Globulin 2.3 gm/dL (2.3-3.5); Glucose 136 mg/dL (74-106); Osmolality,Calculated 289 (275-295); Potassium 4.4 mMol/L (3.4-5.1); Sodium 142 mMol/L (136-145); Thyroid Stimulating Hormone 10.34 uIU/mL (0.55-4.78); Total Protein 6.6 gm/dL (5.7-8.2); eGFR 41 See Note
[2025-04-11 12:12] LABS: Sed Rate (ESR) 7 mm/hr (0-30)
== END | disposition home or self-care (01) ==
LOC: COPL 10:33
PROVIDERS: PCP Family Medicine; Referring Provider Family Medicine; Visit Provider Family Medicine
DX: E03.9 Hypothyroidism, unspecified (principal); I10 Essential (primary) hypertension; G44.209 Tension-type headache, unspecified, not intractable
CPT/HCPCS: 36415; 80053; 84443; 85025; 85652

== ENCOUNTER 2025-05-09 15:08 | Emergency (ER) | payer MEDICARE, BC, SELFPAY ==
[2025-05-09 15:12] VITALS: BP 147/76; PULSE 70; RESP 18; TEMP 36.3; O2SAT 97; BMI 23.6
--- NOTE | 2025-05-09 15:52 | XR_ITS ---
Examination: CT cervical spine without contrast 2-D sagittal reconstructions 2-D coronal reconstructions 3-D reconstructions. Exam date and time:May 09, 2025, 1721 hours INDICATIONS: Ground-level fall today with injection of the neck, neck pain. CTDI:vol (mGy) 8.28. DLP: (mGycm) 192. Technique: Multiple 2 mm axial sections of the cervical spine have been obtained. The coronal and sagittal reconstructions have been obtained. 3-D reconstructions have been obtained. Low dose protocols were performed. One or more of the following dose reduction techniques were used; automated exposure control, adjustment of the mA and/or KV according to patient size, use of iterative reconstruction technique. Findings: Axial sections demonstrate intact base of the skull. C1 exhibit satisfactory relationship to the odontoid. No acute cervical vertebral body fracture seen. Alignment posterior spinous processes satisfactory. Minimal retrolisthesis C5 on C4 Moderate to advanced degenerative disc disease C4-C5, C5-C6 Impression: No acute cervical fracture.
--- NOTE | 2025-05-09 15:52 | XR_ITS ---
Examination: CT brain head without contrast. 2-D sagittal coronal reconstructions Date and time of exam:May 19, 2025, 1721 hours. Comparison March 31, 2025. INDICATIONS: Ground-level fall today, injury to the head, head pain CTDI: vol (mGy):49.8. DLP: (mGycm):1037 Technique: Multiple CT axial sections of the brain have been obtained, 5 mm slice thickness. Contrast has not been administered. 2-D sagittal, coronal reconstructions have been obtained Low dose protocols were performed. One or more of the following dose reduction techniques were used; automated exposure control, adjustment of the mA and/or KV according to patient size, use of iterative reconstruction technique. Findings: No significant ventricular enlargement. Intra-axial or extra-axial hemorrhage density is not seen. No mass effect or midline shift Basal cisterns are not remarkable. Fourth ventricle is midline. Cranial vault intact. Impression: Negative for acute hemorrhage, mass effect or midline shift
--- NOTE | 2025-05-09 15:52 | XR_ITS ---
Examination: CT abdomen and pelvis without contrast. Coronal 3-D reconstructions. Sagittal 2-D reconstructions. Date and time of exam: 2024, 1730 hours INDICATIONS: Patient fell today with injury to the abdomen, lower abdominal pain. CTDI: vol (mGy): 8.50 DLP: (mGycm): 515. Technique: Axial images of the abdomen have been obtained, 3 mm slice thickness Intravenous contrast material has not been administered. Low dose protocols were performed. One or more of the following dose reduction techniques were used; automated exposure control, adjustment of the mA and/or KV according to patient size, use of iterative reconstruction technique. Findings: No liver splenic or renal laceration No perinephric hematomas No gallstones No pancreatic mass Abdominal aorta intact, no free blood in the abdomen or pelvis Negative for pneumoperitoneum Colonic diverticulosis Urinary bladder is intact No lumbar or sacral fracture, advanced degenerative disc disease L2-L3, L5-S1 Total right hip arthroplasty with satisfactory alignment Left hip bones of the pelvis is intact IMPRESSION: No abdominal parenchymal laceration Abdominal aorta intact No free blood in the abdomen or pelvis. No soft tissue contusion noted
--- NOTE | 2025-05-09 15:52 | XR_ITS ---
Examination: CT lumbar spine, without contrast. 2-D sagittal reconstructions. 2-D coronal reconstructions. 3-D reconstructions. Date and time of exam:May 09, 2025, 1730 hours INDICATIONS: Patient fell today with injury to lower back, lower back pain. CTDI: vol (mGy):22.2. DLP: (mGycm):1723. Technique: Multiple 1.25 mm axial sections of the lumbar spine without intravenous contrast have been obtained. 2-D sagittal and coronal reconstructions have been obtained. 3-D reconstructions have been obtained. Low dose protocols were performed. One or more of the following dose reduction techniques were used; automated exposure control, adjustment of the mA and/or KV according to patient size, use of iterative reconstruction technique. Findings: Adequate alignment lumbar vertebral bodies Severe osteopenia. Moderate to advanced disc narrowing L2-L3, L4-L5, L5-S1. Lumbar pedicles, laminae, transverse and posterior spinous processes are intact L5-S1 3 mm left paracentral disc bulge L4-L5 moderate to severe overall acquired spinal stenosis, axial image 82, 6 mm on lumbar disc bulge, facet arthropathy and thickening of ligamentum flavum circumferentially narrowing the thecal sac and producing moderate left L4 ganglionic compression IMPRESSION: No acute lumbar fracture Moderate to advanced degenerative disc disease L2-L3, L4-L5, L5-S1 L4-L5 moderate to severe overall acquired spinal stenosis including moderate left L4 ganglionic compression
--- NOTE | 2025-05-09 15:58 | XR_ITS ---
Examination:Right hip AP, lateral, AP pelvis 3 views Technique: Hip AP lateral, AP pelvis, 3 views Exam date and time:May 09, 2025 1614 hours INDICATIONS: Patient fell today with injury to the right hip, right hip pain. FINDINGS: Prominent osteopenia Total right hip arthroplasty with satisfactory alignment No fracture or loosening of the prosthetic components Left hip bones of the pelvis intact IMPRESSION: No acute hip or pelvic fracture.
--- NOTE | 2025-05-09 15:58 | PD.EDFALL ---
ED Fall Injury RME/HPI General Chief Complaint: Fall Stated Complaint: FALL Time Seen by Provider: 05/09/25 15:47 Arrival date/time: 05/09/25 15:08 This is a case of 84-year-old female with past medical history of CAD, stent placement in the LAD was brought by the ambulance due to fall injury history of present illness started 1 hour prior to arrival in the emergency room patient was trying to go inside their house and accidentally slipped and fell and landed on his back hitting his head on the floor sustaining a 3 cm contusion on the scalp occipital area patient also complaining of neck pain lower back pain and right hip pain and abdominal pain patient denies any loss of consciousness denies any headache or dizziness nausea vomiting or blurring of vision Limitations: no limitations Related Data Home Medications ?Medication ?Instructions ?Recorded ?Confirmed Eldridge-3 Fatty Acids (OTC) * (FISH 500 mg PO BID #0 caps 11/14/15 OIL (OTC) *) ergocalciferol (vitamin D2) 1,250 ##24 11/14/15 mcg (50,000 unit) capsule (Vitamin D2) aspirin 81 mg tablet,delayed 81 mg PO QDAY 08/25/23 10/13/24 release famotidine 40 mg tablet 20 mg PO QDAY 08/25/23 10/13/24 hydrocodone 10 mg-acetaminophen 0.5 tab PO PRN PRN Pain 08/25/23 10/13/24 325 mg tablet levothyroxine 75 mcg tablet 50 mcg PO QDAY 08/25/23 10/13/24 pantoprazole 40 mg tablet,delayed 40 mg PO QDAY 08/25/23 10/13/24 release docusate sodium 50 mg capsule 50 mg PO PRN PRN Constipation 10/13/24 10/13/24 escitalopram oxalate 10 mg tablet 10 mg PO QDAY 10/13/24 10/13/24 irbesartan 150 mg tablet 150 mg PO QDAY 10/13/24 10/13/24 magnesium 200 mg tablet 400 mg PO QDAY 10/13/24 10/13/24 mecobalamin (vitamin B12) 1,000 1,000 mcg PO DAILY 10/13/24 10/13/24 mcg chewable tablet (B12 Active) Previous Rx's ?Medication ?Instructions ?Recorded acetaminophen 300 mg-codeine 30 mg 2 tab PO Q8H PRN pain #20 tabs 03/31/25 tablet cefdinir 300 mg capsule 300 mg PO BID #14 caps 03/31/25 fluconazole 200 mg tablet 200 mg PO ONCE PM 7 weeks #2 tabs 03/31/25 (Diflucan) tramadol 25 mg tablet 25 mg PO Q6H PRN pain #10 tabs 05/09/25 Allergies Allergy/AdvReac Type Severity Reaction Status Date / Time [id number] Reductase Allergy Mild Gastrointestinal Verified 08/25/23 08:47 Inhibitor Upset codeine AdvReac Mild Nausea Verified 08/25/23 08:47 CONTRAST DYE Allergy Severe Rash Uncoded 08/25/23 08:47 Review of Systems Review of Systems Systems Reviewed: All systems reviewed, normal except as documented Constitutional Constitutional: Reports system reviewed and no additional complaints, except as documented, Reports as per HPI, Denies chills, Denies fatigue, Denies fever(s), Denies frequent falls, Denies headache(s) and Denies weakness Eyes Eyes: Denies loss of vision ENT Ears, Nose, Mouth, and Throat: Denies dizziness, Denies headache(s) and Denies vertigo Cardiovascular Cardiovascular: Reports system reviewed and no additional complaints, except as documented, Reports as per HPI, Denies chest pain, Denies dyspnea and Denies syncope Respiratory Respiratory: Reports system reviewed and no additional complaints, except as documented, Reports as per HPI, Denies chest congestion, Denies cough and Denies dyspnea Gastrointestinal Gastrointestinal: Reports system reviewed and no additional complaints, except as documented, Reports as per HPI, Denies abdominal pain, Denies diarrhea, Denies nausea and Denies vomiting Musculoskeletal Musculoskeletal: Reports system reviewed and no additional complaints, except as documented, Reports as per HPI, Denies abnormal gait and Denies tingling Integumentary/Breasts Skin/Breast: Reports other (Scalp contusion) Neurologic Neurologic: Reports system reviewed and no additional complaints, except as documented, Reports as per HPI, Denies abnormal gait, Denies behavioral changes, Denies convulsions, Denies dizziness, Denies localized weakness, Denies frequent falls, Denies headache(s), Denies lack of coordination, Denies loss of vision, Denies memory loss, Denies other visual disturbances, Denies radicular pain, Denies seizure-like activity, Denies sensory deficit, Denies syncope, Denies tingling, Denies tremor(s), Denies vertigo and Denies weakness Psychiatric Psychiatric: Denies behavioral changes and Denies memory loss Endocrine Endocrine: Denies fatigue Past Medical History Past Medical History NEUROLOGIC: Negative Neurological Disorders or Seizures CARDIAC: Positive Cardiac Disorders, Hypercholesterolemia and Hypertension; Negative Congestive Heart Failure RESPIRATORY: Negative Chronic Obstructive Pulmonary Disease (COPD) GASTROINTESTINAL: Negative Gastrointestinal Disorders GENITOURINARY: Positive Genitourinary Disorders and Kidney Stones; Negative Renal Disease REPRODUCTIVE: Positive Endometriosis and Previous Pregnancies MUSCULOSKELETAL: Positive Musculoskeletal Disorders and Arthritis ENDOCRINE: Positive Endocrine Disorders and Hypoglycemia; Negative Diabetes Mellitus Type 1 or Diabetes Mellitus Type 2 HEMATOLOGIC: Positive Blood Disorders and Anemia PSYCHO/SOCIAL: Positive Depression OTHER HISTORY: Positive Radiation Therapy and Cancer; Negative Blood Transfusions, Blood Transfusion Reaction (na), Anesthesia Reactions or Chemotherapy Surgical History SURGICAL: Positive Cardiac Surgery, Coronary Stent, Angiogram, Abdominal Surgery, Gastric Bypass Surgery, Joint Replacement, Hysterectomy and Section; Negative Endocrine Surgery Social History SMOKING STATUS: Former smoker ED Exam General Limitations: Present no limitations General appearance: Present alert, in no apparent distress and other (Patient is awake alert oriented not in distress nontoxic looking well-hydrated well-nourished) Head Head exam: Present normocephalic, normal inspection and other (Patient sustained 3 cm contusion in the scalp occipital area with hematoma no crepitation no deformity no laceration no abrasion) Eye Eye exam: Present normal appearance, PERRL, EOMI and other (no papiledema) ENT ENT exam: Present normal exam, normal oropharynx and mucous membranes moist Neck Neck exam: Present normal inspection, full ROM and trachea midline; Absent tenderness, meningismus, lymphadenopathy or thyromegaly Chest Chest inspection: Present normal inspection and symmetric chest wall rise; Absent tenderness or rash Respiratory Respiratory exam: Present normal lung sounds bilaterally; Absent respiratory distress, wheezes, stridor, accessory muscle use or prolonged expiratory phase Cardiovascular Cardiovascular exam: Present regular rate, normal rhythm and normal heart sounds; Absent bradycardia, tachycardia, irregular rhythm, systolic murmur or diastolic murmur Abdominal Exam Abdominal exam: Present soft, tenderness (Mild tenderness on periumbilical area no CVAT\tenderness) and normal bowel sounds; Absent distention, guarding, rebound, rigidity, diminished bowel sounds, hyperactive bowel sounds, hypoactive bowel sounds, organomegaly, psoas sign, obturator sign, Ga's sign, Rovsing's sign, tenderness at McBurney's Point or hernia Extremities Exam Extremities exam: Present normal inspection and full ROM Expanded Lower Extremity Exam Hip/Pelvis exam: Present normal inspection, full ROM, tenderness (Mild tenderness on the right hip no swelling no crepitation no deformity ROM intact) and pelvis stable; Absent swelling, abrasion, laceration, ecchymosis, deformity, crepitus, dislocation, erythema, external rotation, internal rotation or shortening Back Exam Back exam: Present normal inspection, full ROM and tenderness (Mild tenderness L1-L3 no crepitation no deformity no swelling no redness no paraspinal no paravertebral tenderness leg raise exam is normal); Absent CVA tenderness (R), CVA tenderness (L), muscle spasm, paraspinal tenderness, vertebral tenderness, rashes, sciatic notch tenderness (R), sciatic notch tenderness (L), straight leg raise (R) or straight leg raise (L) Neurological Exam Neurological exam: Present alert, oriented X3, CN II-XII intact, reflexes normal and other (Awake alert oriented x 4 no focal deficit GCS 15/15 CN II to XII is normal memory intact no slurring speech no facial droop unable to assess gait due to pain in lower back and right hip negative Babinski); Absent motor sensory deficit Psychiatric Psychiatric exam: Present normal affect and normal mood Skin Skin exam: Present warm, dry, intact and normal color Course Quality Measures none Orders Category Date Time Status CT abdomen pelvis wo con Stat Exams 05/09/25 15:[address] cervical spine wo con Stat Exams 05/09/25 15:[address] head/brain wo con Stat Exams 05/09/25 15:[address] lumbar spine wo con Stat Exams 05/09/25 15:52 Completed XR HIP RT W PELVIS 2-3V DO NOT USE Stat Exams 05/09/25 15:58 Completed CBC Stat Lab 05/09/25 15:57 Completed CMP [Comprehensive Metabolic Panel] Stat Lab 05/09/25 15:57 Completed Lipase Stat Lab 05/09/25 15:57 Completed Urinalysis Stat Lab 05/09/25 16:54 Completed Vital Signs Vital signs: Vital Signs Temperature 97.4 F 05/09/25 15:12 Pulse Rate 70 05/09/25 15:12 Respiratory Rate 18 05/09/25 15:12 Blood Pressure 147/76 H 05/09/25 15:12 Pulse Oximetry (%) 97 05/09/25 15:12 Oxygen Delivery Method Room Air 05/09/25 15:12 Patient is afebrile not tachycardic not tachypneic BP stable not hypoxic oxygen saturation is 97% in room air Fall MDM Narrative MDM Narrative:: This is a case of 84-year-old female with past medical history of CAD, stent placement in the LAD was brought by the ambulance due to fall injury history of present illness started 1 hour prior to arrival in the emergency room patient was trying to go inside their house and accidentally slipped and fell and landed on his back hitting his head on the floor sustaining a 3 cm contusion on the scalp occipital area patient also complaining of neck pain lower back pain and right hip pain and abdominal pain patient denies any loss of consciousness denies any headache or dizziness nausea vomiting or blurring of vision physical examination patient is awake alert oriented not in distress nontoxic looking well-hydrated well-nourished neurological exam is normal awake alert oriented x 4 no focal deficit GCS 15/15 steady gait no facial droop no slurring of speech memory intact negative Babinski patient lung sound is clear no crackles no rales no retraction no stridor abdominal exam is benign nonsurgical no guarding no rebound no rigidity patient have mild tenderness in the cervical area lumbar area and right hip no crepitation no deformity ROM intact patient was on sustained a scalp contusion no crepitation no deformity CT scan of the head is normal no intracranial bleeding patient cervical CT is normal DDD cervical patient CT of the lumbar bulging herniated disc patient abdominal exam is normal and unremarkable patient x-ray of the hip is also normal osteopenia at this point patient will be discharged home in stable condition patient neurological exam reassessment still normal and unremarkable I have a long discussion with the patient regarding his CT scan in the loop where she needs to see a neurosurgeon for possible MRI to rule out herniated disc at the time of exam no signs and symptoms of cauda equina neurological exam is normal and unremarkable patient was prescribed low-dose of tramadol for pain patient states that he has a pain management doctor for pain control patient was advised for any worsening symptoms or any changes of sensorium she will return to the emergency room immediately or call [phone] patient blood test no leukocytosis no anemia kidney liver function is normal no electrolyte send normal lipase normal urinalysis normal Patient was discharged with comfortable condition walking with stable gait. Patient verbalized no further complains explained diagnosis and answered patient question. Patient is comfortable with the proposed management plan including the need to follow up with his/her primary care physician and any specialist if applicable Discussed patient for any urgent condition or worsening sx, He/She needed to go to emergency room immediately or call 911. Patient acknowledge the responsibility to follow up as instructed and to monitor her/his symptoms. For any persistence of the symptoms for more than 3-5 days return precaution advised. Discussed the result of the test and was given printed discharge instruction Patient data External records reviewed:: [facility] previous records Clinical information provided by:: patient Social determinants that could affect healthcare access:: none Patient has the following chronic illnesses:: None How is presenting disease/condition affected by chronic disease/condition?: caused by Evaluation data The following diagnostics were reviewed and interpreted by me:: lab results and radiology exam(s) Lab and/or radiology exams considered but not ordered:: Reviewed Interpretation Summary: Reviewed Medications / Prescriptions Medications or Prescriptions considered but not ordered:: Given Medication administrations:: Given Consultations Consultation(s) initiated? (list below): No Diagnosis Fall Differential Diagnosis: concussion without loss of consciousness and other (Head injury scalp contusion) Most likely diagnosis given after review of the tests above:: Head injury scalp contusion Admission Indicated Admission indicated?: not indicated Explain why admission is indicated or not indicated:: Not indicated Admission Request Was there a request for admission?: No Admission Attestation Admission request attestation: Not indicated Disposition Plan Disposition Plan: Discharge Discharge Attestation Discharge Attestation: The patient and all family members were given an opportunity to ask questions and understood the discharge instructions. Discharge instructions specifically effects, indications for sooner follow up or return to the emergency department, and the expected course of current diagnosis. Patient condition: Stable Discharge Plan Plan Patient Disposition: HOME (Self Care) Prescriptions/Referrals Prescriptions/Med Rec: New tramadol 25 mg tablet 25 mg PO Q6H MDD max 4 tabs per day PRN (Reason: pain) Qty: 10 0RF No Action ergocalciferol (vitamin D2) [Vitamin D2] 50,000 UNIT capsule Qty: 24 Eldridge-3 Fatty Acids (OTC) * (FISH OIL (OTC) *) 500 MG capsule 500 mg PO BID Qty: 0 famotidine 40 mg tablet 20 mg PO QDAY Patient Comments: TAKE ONE TABLET BY MOUTH EVERY DAY AT BED TIME HEARTBURN hydrocodone-acetaminophen 10-325 mg tablet 0.5 tab PO PRN PRN (Reason: Pain) Patient Comments: TAKE ONE TABLET BY MOUTH EVERY 4 TO 6 HOURS NEEDED FOR PAIN aspirin 81 mg Tablet,Delayed Release (Dr/Ec) 81 mg PO QDAY levothyroxine 75 mcg tablet 50 mcg PO QDAY Patient Comments: TAKE ONE TABLET BY MOUTH EVERY MORNING ON EMPTY STOMACH FOR THYROID pantoprazole 40 mg tablet,delayed release (DR/EC) 40 mg PO QDAY Patient Comments: TAKE ONE TABLET BY MOUTH EVERY DAY HEARTBURN FOR GASTRITIS docusate sodium 50 mg Capsule 50 mg PO PRN PRN (Reason: Constipation) magnesium 200 mg Tablet 400 mg PO QDAY escitalopram oxalate 10 mg Tablet 10 mg PO QDAY mecobalamin (vitamin B12) [B12 Active] 1,000 mcg Tablet,Chewable 1,000 mcg PO DAILY irbesartan 150 mg Tablet 150 mg PO QDAY acetaminophen-codeine 300-30 mg tablet 2 tab PO Q8H MDD 6 PRN (Reason: pain) Qty: 20 0RF cefdinir 300 mg capsule 300 mg PO BID Qty: 14 0RF fluconazole [Diflucan] 200 mg tablet 200 mg PO ONCE PM 49 Days Qty: 2 0RF Rx Instructions: Take one pill once then repeat after 7 days. Referrals: Joselyn Lindsay MD [Primary Care Provider] - In 1 week Problem List Clinical Impression: Fall, Head injury, Contusion of scalp, Cervical sprain, Lumbar sprain, DDD (degenerative disc disease), cervical, Bulging lumbar disc, Hip sprain, Abdominal pain Patient/Caregiver Discharge Instructions Education Materials: Abdominal Pain, Treating?Strains and Sprains, Common Spine and Disk Problems, Preventing Falls Moving Safely ..., ED Scalp Contusion, ED Head Injury (Adult), ED Neck Sprain or Strain Additional Instructions: Follow-up with your primary care physician in 2 days for reevaluation and to be referred to neurosurgeon for further evaluation and treatment of lumbar herniated disks and DDD of the cervical for possible MRI to rule out herniated disc and pain management doctor for pain control you need to be seen also with the orthopedic surgeon for your chronic right hip pain for further evaluation and treatment worsening symptoms or any emergent concerns such as headache nausea vomiting dizziness blurring of vision unsteady gait call 911 or go to the nearest emergency room ice pack every 2-4 hours to your scalp contusion is advised keep hydrated take your medication as directed Print Language: Luxembourger Stand Alone Forms: [employer] Award Info., Patient Portal Info Letter PA/PERFORMING [employer] Supervising Physician PA/[employer] Supervising Physician: dr [email or web address]
[2025-05-09 16:10] LABS: Basophils # (Auto) 0.0 Thou/mm3 (0.0-0.2); Basophils % (Auto) 1 % (0-2.5); Eosinophils # (Auto) 0.1 Thou/mm3 (0.0-0.5); Eosinophils % (Auto) 2 % (0-10); Hematocrit 35.3 % (36.0-46.0); Hemoglobin 11.4 g/dL (12.0-16.0); Immature Granulocytes Auto 0.01 Thou/mm3 (0.00-0.00); Lymphocytes # (Auto) 2.0 Thou/mm3 (1.0-4.8); Lymphocytes % (Auto) 36 % (10-50); Mean Corpuscular HGB Conc 32.3 g/dl (31.0-37.0); Mean Corpuscular Hemoglobin 31.6 pg (25.0-35.0); Mean Corpuscular Volume 98 fL (80-100); Monocytes # (Auto) 0.5 Thou/mm3 (0.0-0.8); Monocytes % (Auto) 10 % (0-12); Neutrophils # (Auto) 3.0 Thou/mm3 (1.8-7.7); Neutrophils % (Auto) 53 % (37-80); Nucleated Red Blood Cell # 0.00 Thou/mm3 (0.00-0.00); Nucleated Red Blood Cell % 0 /100 WBC (0); Platelet Count 208 Thou/mm3 (140-440); RDW Standard Deviation 50.1 fL (36.4-46.3); Red Blood Count 3.61 Miln/mm3 (4.00-5.20); White Blood Count 5.7 Thou/mm3 (3.6-11.0)
[2025-05-09 16:43] LABS: Alanine Aminotransferase 10 U/L (10-49); Albumin, Serum 4.1 gm/dL (3.4-4.8); Albumin/Globulin Ratio 1.7 (1.2-2.2); Alkaline Phosphatase 74 U/L (46-116); Anion Gap 8 (7-16); Aspartate Amino Transferase 17 U/L (0-34); BUN/Creatinine Ratio 18 Ratio (12-20); Bilirubin,Total 0.6 mg/dL (0.3-1.2); Blood Urea Nitrogen 22 mg/dL (9-23); Calcium 9.0 mg/dL (8.3-10.6); Calcium (Corrected) 9.0 mg/dL (8.5-10.1); Carbon Dioxide 25.4 mMol/L (20.0-31.0); Chloride 108 mMol/L (98-107); Creatinine (Component) 1.2 mg/dL (0.6-1.3); Estimated Creatinine Clearance 35.2 mL/min (>60); Globulin 2.4 gm/dL (2.3-3.5); Glucose 118 mg/dL (74-106); Lipase 30 U/L (12-53); Osmolality,Calculated 285 (275-295); Potassium 4.5 mMol/L (3.4-5.1); Sodium 141 mMol/L (136-145); Total Protein 6.5 gm/dL (5.7-8.2); eGFR 45 See Note
[2025-05-09 17:09] LABS: Collection Type, Urine Voided
[2025-05-09 17:29] LABS: Bilirubin,Urine Negative (Negative); Blood,Urine Negative (Negative); Clarity,Urine Clear (Clear/Hazy); Color,Urine Yellow (Lt Yel-Yel); Glucose, Urine 1+ (Negative); Hyaline Casts,Urine < 1 /hpf (0-1); Ketones,Urine Negative (Negative); Leukocyte Esterase,Urine Negative (Negative); Nitrite,Urine Negative (Negative); PH,Urine 6.0 (5.0-7.0); Protein,Urine Trace (Neg - Trace); RBC,Urine 7 /hpf (0-3); Specific Gravity,Urine 1.033 (1.001-1.035); Squamous Epithelial Cell,Urine 5 /hpf (0-5); Urobilinogen,Urine Negative mg/dL (0.0-1.0); WBC,Urine 2 /hpf (0-5)
[2025-05-09 18:10] VITALS: BP 167/75; PULSE 60; RESP 16; TEMP 36.7; O2SAT 97
== END 2025-05-09 19:10 | disposition home or self-care (01) ==
PROVIDERS: Nurse Practitioner Family; Emergency Provider Emergency Medicine; PCP Family Medicine
DX: S00.03XA Contusion of scalp, initial encounter (principal); S13.4XXA Sprain of ligaments of cervical spine, initial encounter; S73.101A Unspecified sprain of right hip, initial encounter; S00.90XA Unspecified superficial injury of unspecified part of head, initial encounter; S39.91XA Unspecified injury of abdomen, initial encounter; M51.360 Other intervertebral disc degeneration, lumbar region with discogenic back pain only; M51.370 Other intervertebral disc degeneration, lumbosacral region with discogenic back pain only; M85.88 Other specified disorders of bone density and structure, other site; W01.0XXA Fall on same level from slipping, tripping and stumbling without subsequent striking against object, initial encounter
CPT/HCPCS: 36415; 70450; 72125; 72131; 73502; 74176; 80053; 81001; 83690; 85025; 99284

== ENCOUNTER → 2025-05-18 | Outpatient (CLI) | payer MEDICARE, BC, SELFPAY ==
[2025-05-18 14:43] LABS: Collection Type, Urine Clean Catch
[2025-05-18 16:42] LABS: Bacteria,Urine Rare; Bilirubin,Urine Negative (Negative); Blood,Urine Negative (Negative); Budding Yeast,Urine Present; Color,Urine Yellow (Lt Yel-Yel); Glucose, Urine Negative (Negative); Hyaline Casts,Urine < 1 /hpf (0-1); Ketones,Urine Negative (Negative); Leukocyte Esterase,Urine Negative (Negative); Nitrite,Urine Negative (Negative); PH,Urine 6.0 (5.0-7.0); Protein,Urine 1+ (Neg - Trace); RBC,Urine 774 /hpf (0-3); Specific Gravity,Urine 1.033 (1.001-1.035); Squamous Epithelial Cell,Urine 21 /hpf (0-5); Urobilinogen,Urine 2.0 mg/dL (0.0-1.0); WBC,Urine 61 /hpf (0-5)
[2025-05-18 16:53] LABS: Clarity,Urine Hazy (Clear/Hazy)
== END | disposition home or self-care (01) ==
LOC: SLDO 14:36
PROVIDERS: PCP Family Medicine; Referring Provider Family Medicine; Visit Provider Family Medicine
DX: N30.00 Acute cystitis without hematuria (principal); N39.0 Urinary tract infection, site not specified
CPT/HCPCS: 81001; 87086; 87106

== ENCOUNTER → 2025-06-14 | Outpatient (CLI) | payer MEDICARE, BC, SELFPAY ==
[2025-06-14 14:53] LABS: Collection Type, Urine Clean Catch; RBC,Urine 0 /hpf (0-3)
[2025-06-14 15:39] LABS: Bacteria,Urine Rare; Bilirubin,Urine Negative (Negative); Blood,Urine Negative (Negative); Budding Yeast,Urine Present; Clarity,Urine Turbid (Clear/Hazy); Color,Urine Yellow (Lt Yel-Yel); Glucose, Urine Negative (Negative); Ketones,Urine Negative (Negative); Leukocyte Esterase,Urine Negative (Negative); Nitrite,Urine Positive (Negative); PH,Urine 7.0 (5.0-7.0); Protein,Urine 1+ (Neg - Trace); Specific Gravity,Urine 1.039 (1.001-1.035); Squamous Epithelial Cell,Urine 9 /hpf (0-5); Urobilinogen,Urine 2.0 mg/dL (0.0-1.0); WBC,Urine 8 /hpf (0-5)
== END | disposition home or self-care (01) ==
LOC: SLDO 14:46
PROVIDERS: Referring Provider Family Medicine; Visit Provider Family Medicine
DX: N30.00 Acute cystitis without hematuria (principal)
CPT/HCPCS: 81001; 87077; 87086; 87186

== ENCOUNTER → 2025-06-15 | Outpatient (CLI) | payer MEDICARE, BC, SELFPAY ==
--- NOTE | 2025-06-15 10:01 | XR_ITS ---
Examination: Knee, right , 3 views Technique: Knee AP, lateral, oblique 3 views Date and time of exam: June 15, 2025 1006 hours INDICATIONS: Patient fell 2 weeks ago with injury to the knee, knee pain, knee replacement 2017 FINDINGS: Severe osteopenia Total right knee arthroplasty. Satisfactory alignment. No fracture. No loosening of the prosthetic components. Small knee effusion IMPRESSION: No fracture
[2025-06-15 10:44] LABS: Basophils # (Auto) 0.1 Thou/mm3 (0.0-0.2); Basophils % (Auto) 1 % (0-2.5); Eosinophils # (Auto) 0.2 Thou/mm3 (0.0-0.5); Eosinophils % (Auto) 3 % (0-10); Hematocrit 37.3 % (36.0-46.0); Hemoglobin 12.1 g/dL (12.0-16.0); Immature Granulocytes Auto 0.01 Thou/mm3 (0.00-0.00); Lymphocytes # (Auto) 1.7 Thou/mm3 (1.0-4.8); Lymphocytes % (Auto) 36 % (10-50); Mean Corpuscular HGB Conc 32.4 g/dl (31.0-37.0); Mean Corpuscular Hemoglobin 31.5 pg (25.0-35.0); Mean Corpuscular Volume 97 fL (80-100); Monocytes # (Auto) 0.5 Thou/mm3 (0.0-0.8); Monocytes % (Auto) 10 % (0-12); Neutrophils # (Auto) 2.3 Thou/mm3 (1.8-7.7); Neutrophils % (Auto) 49 % (37-80); Nucleated Red Blood Cell # 0.00 Thou/mm3 (0.00-0.00); Nucleated Red Blood Cell % 0 /100 WBC (0); Platelet Count 187 Thou/mm3 (140-440); RDW Standard Deviation 49.7 fL (36.4-46.3); Red Blood Count 3.84 Miln/mm3 (4.00-5.20); White Blood Count 4.7 Thou/mm3 (3.6-11.0)
[2025-06-15 11:08] LABS: Alanine Aminotransferase < 7 U/L (10-49); Albumin, Serum 4.3 gm/dL (3.4-4.8); Albumin/Globulin Ratio 2.0 (1.2-2.2); Alkaline Phosphatase 93 U/L (46-116); Anion Gap 9 (7-16); Aspartate Amino Transferase 19 U/L (0-34); BUN/Creatinine Ratio 14 Ratio (12-20); Bilirubin,Total 0.4 mg/dL (0.3-1.2); Blood Urea Nitrogen 15 mg/dL (9-23); Calcium 9.7 mg/dL (8.3-10.6); Calcium (Corrected) 9.7 mg/dL (8.5-10.1); Carbon Dioxide 25.2 mMol/L (20.0-31.0); Chloride 106 mMol/L (98-107); Creatinine (Component) 1.1 mg/dL (0.6-1.3); Free T4 (Free Thyroxine) 1.02 ng/dL (0.89-1.76); Globulin 2.2 gm/dL (2.3-3.5); Glucose 128 mg/dL (74-106); Osmolality,Calculated 282 (275-295); Potassium 3.7 mMol/L (3.4-5.1); Sodium 140 mMol/L (136-145); Thyroid Stimulating Hormone 17.49 uIU/mL (0.55-4.78); Total Protein 6.5 gm/dL (5.7-8.2); eGFR 50 See Note
== END | disposition home or self-care (01) ==
LOC: CDIM 09:31 → COPL 10:15
PROVIDERS: PCP Family Medicine; Referring Provider Family Medicine; Visit Provider Radiology Diagnostic Radiology
DX: M25.561 Pain in right knee (principal); E03.9 Hypothyroidism, unspecified; N30.00 Acute cystitis without hematuria
CPT/HCPCS: 36415; 73562; 80053; 84439; 84443; 85025

== ENCOUNTER → 2025-06-25 | Outpatient (CLI) | payer MEDICARE, BC, SELFPAY ==
[2025-06-25 16:33] LABS: Campylobacter PCR Negative (Negative); Salmonella Species PCR Negative (Negative); Shiga Toxin PCR Negative (Negative); Shigella Species PCR Negative (Negative)
[2025-06-29 23:32] LABS: Source STOOL
== END | disposition home or self-care (01) ==
LOC: SLDO 11:21
PROVIDERS: PCP Family Medicine; Referring Provider Family Medicine; Visit Provider Family Medicine
DX: R19.7 Diarrhea, unspecified (principal)
CPT/HCPCS: 87015; 87045; 87046; 87177; 87209; 87899

== ENCOUNTER → 2025-07-23 | Outpatient (CLI) | payer MEDICARE, BC, SELFPAY ==
[2025-07-26 11:09] LABS: Clostridium Difficile PCR Negative (Negative)
== END | disposition home or self-care (01) ==
LOC: SLDO 15:05
PROVIDERS: PCP Family Medicine; Referring Provider Family Medicine; Visit Provider Family Medicine
DX: R19.7 Diarrhea, unspecified (principal)
CPT/HCPCS: 87493

== ENCOUNTER → 2025-07-27 | Outpatient (CLI) | payer MEDICARE, BC, SELFPAY ==
[2025-07-27 11:54] LABS: Collection Type, Urine Clean Catch
[2025-07-27 12:21] LABS: Basophils # (Auto) 0.0 Thou/mm3 (0.0-0.2); Basophils % (Auto) 1 % (0-2.5); Eosinophils # (Auto) 0.2 Thou/mm3 (0.0-0.5); Eosinophils % (Auto) 4 % (0-10); Hematocrit 37.1 % (36.0-46.0); Hemoglobin 12.1 g/dL (12.0-16.0); Immature Granulocytes Auto 0.01 Thou/mm3 (0.00-0.00); Lymphocytes # (Auto) 1.4 Thou/mm3 (1.0-4.8); Lymphocytes % (Auto) 31 % (10-50); Mean Corpuscular HGB Conc 32.6 g/dl (31.0-37.0); Mean Corpuscular Hemoglobin 32.3 pg (25.0-35.0); Mean Corpuscular Volume 99 fL (80-100); Monocytes # (Auto) 0.4 Thou/mm3 (0.0-0.8); Monocytes % (Auto) 8 % (0-12); Neutrophils # (Auto) 2.6 Thou/mm3 (1.8-7.7); Neutrophils % (Auto) 57 % (37-80); Nucleated Red Blood Cell # 0.00 Thou/mm3 (0.00-0.00); Nucleated Red Blood Cell % 0 /100 WBC (0); Platelet Count 176 Thou/mm3 (140-440); RDW Standard Deviation 53.4 fL (36.4-46.3); Red Blood Count 3.75 Miln/mm3 (4.00-5.20); White Blood Count 4.5 Thou/mm3 (3.6-11.0)
[2025-07-27 12:30] LABS: Glucose Estimated Average 117 mg/dL (80-131); Hemoglobin A1C 5.7 % Hgb (4.8-6.0)
[2025-07-27 12:30] LABS: Amorphous Crystals,Urine Present (Absent); Bilirubin,Urine Negative (Negative); Blood,Urine Trace (Negative); Budding Yeast,Urine Present; Clarity,Urine Turbid (Clear/Hazy); Color,Urine Yellow (Lt Yel-Yel); Glucose, Urine Negative (Negative); Hyaline Casts,Urine 4 /hpf (0-1); Ketones,Urine Negative (Negative); Leukocyte Esterase,Urine Negative (Negative); Nitrite,Urine Negative (Negative); PH,Urine 5.5 (5.0-7.0); Protein,Urine 1+ (Neg - Trace); RBC,Urine 1 /hpf (0-3); Specific Gravity,Urine 1.033 (1.001-1.035); Squamous Epithelial Cell,Urine 89 /hpf (0-5); Urobilinogen,Urine 2.0 mg/dL (0.0-1.0); WBC,Urine 1 /hpf (0-5)
[2025-07-27 12:32] LABS: Parathyroid Hormone Intact 133.7 pg/ml (18.5-88.0)
[2025-07-27 12:35] LABS: Alanine Aminotransferase 11 U/L (10-49); Albumin, Serum 4.1 gm/dL (3.4-4.8); Albumin/Globulin Ratio 1.9 (1.2-2.2); Alkaline Phosphatase 69 U/L (46-116); Anion Gap 9 (7-16); Aspartate Amino Transferase 15 U/L (0-34); BUN/Creatinine Ratio 19 Ratio (12-20); Bilirubin,Total 0.4 mg/dL (0.3-1.2); Blood Urea Nitrogen 21 mg/dL (9-23); Calcium 9.6 mg/dL (8.3-10.6); Calcium (Corrected) 9.6 mg/dL (8.5-10.1); Carbon Dioxide 25.3 mMol/L (20.0-31.0); Cardiac Risk Estimate 3.4 RATIO (3.7-5.6); Chloride 108 mMol/L (98-107); Cholesterol 146 mg/dL (132-200); Creatinine (Component) 1.1 mg/dL (0.6-1.3); Ferritin 18 ng/mL (7.3-270.7); Free T4 (Free Thyroxine) 1.27 ng/dL (0.89-1.76); Globulin 2.2 gm/dL (2.3-3.5); Glucose 113 mg/dL (74-106); HDL Cholesterol 43 mg/dL (40-60); Iron 113 mcg/dL (50-170); LDL Cholesterol,Calculated 78 mg/dL (0-130); Osmolality,Calculated 287 (275-295); Percent Iron Saturation 30 % (20-55); Potassium 4.4 mMol/L (3.4-5.1); Sodium 142 mMol/L (136-145); Thyroid Stimulating Hormone 1.81 uIU/mL (0.55-4.78); Total Iron Binding Capacity 368 mcg/dL (250-425); Total Protein 6.3 gm/dL (5.7-8.2); Triglycerides 124 mg/dL (30-150); Unsaturated Iron Binding 255 (225-295); eGFR 49 See Note
[2025-07-27 12:36] LABS: Folate 15.42 ng/mL (>5.38); Vitamin B12 1123 pg/mL (211-911)
[2025-08-01 07:07] LABS: Vitamin D,1,25 (OH)2,Total 33 pg/mL (18-72); Vitamin D2, 1,25 (OH)2 20 pg/mL; Vitamin D3, 1,25 (OH)2 13 pg/mL
[2025-08-02 14:06] LABS: Vitamin B1 (Thiamine)* <6 nmol/L (8-30); Vitamin B6, Plasma* 8.8 ng/mL (2.1-21.7)
== END | disposition home or self-care (01) ==
LOC: COPL 10:40
PROVIDERS: PCP Family Medicine; Referring Provider Surgery; Visit Provider Surgery
DX: N18.31 Chronic kidney disease, stage 3a (principal); E03.9 Hypothyroidism, unspecified; Z98.84 Bariatric surgery status; E44.0 Moderate protein-calorie malnutrition; R53.82 Chronic fatigue, unspecified; R53.81 Other malaise; E56.9 Vitamin deficiency, unspecified; E55.9 Vitamin D deficiency, unspecified
CPT/HCPCS: 36415; 80053; 80061; 81001; 82607; 82652; 82728; 82746; 83036; 83540; 83550; 83970; 84207; 84425; 84439; 84443; 85025

== ENCOUNTER → 2025-07-30 | Outpatient (CLI) | payer MEDICARE, BC, SELFPAY ==
--- NOTE | 2025-07-30 10:00 | XR_ITS ---
Examination: Retroperitoneal ultrasound, complete Technique: Multiple high resolution grayscale images of the retroperitoneum obtained, including kidneys and bladder. Exam date and time:July 30, 2025, 1008 hours INDICATIONS: Urinary tract infections beginning 9 months ago FINDINGS: Right kidney 8.5 cm cortex 1.5 cm Left kidney 8.6 cm cortex 1.3 cm Moderate bilateral scar formation 15 mm, left millimeter upper pole left renal cyst Contracted urinary bladder IMPRESSION: Small kidneys with bilateral renal cortical thinning Moderate renal scar formation
== END | disposition home or self-care (01) ==
PROVIDERS: PCP Family Medicine; Referring Provider Family Medicine; Visit Provider Family Medicine
DX: N28.89 Other specified disorders of kidney and ureter (principal)
CPT/HCPCS: 76770

== ENCOUNTER → 2025-08-31 | Outpatient (CLI) | payer MEDICARE, BC, SELFPAY ==
[2025-08-31 09:48] LABS: Collection Type, Urine Clean Catch
[2025-08-31 11:14] LABS: Glucose Estimated Average 120 mg/dL (80-131); Hemoglobin A1C 5.8 % Hgb (4.8-6.0)
[2025-08-31 11:53] LABS: Bilirubin,Urine Negative (Negative); Blood,Urine Negative (Negative); Budding Yeast,Urine Present; Clarity,Urine Clear (Clear/Hazy); Color,Urine Lt-Yellow (Lt Yel-Yel); Glucose, Urine Negative (Negative); Hyaline Casts,Urine < 1 /hpf (0-1); Ketones,Urine Negative (Negative); Leukocyte Esterase,Urine Negative (Negative); Nitrite,Urine Negative (Negative); PH,Urine 6.0 (5.0-7.0); Protein,Urine Negative (Neg - Trace); RBC,Urine < 1 /hpf (0-3); Specific Gravity,Urine 1.019 (1.001-1.035); Squamous Epithelial Cell,Urine 7 /hpf (0-5); Urobilinogen,Urine Negative mg/dL (0.0-1.0); WBC,Urine 3 /hpf (0-5)
[2025-09-05 06:32] LABS: Vitamin D,1,25 (OH)2,Total 20 pg/mL (18-72); Vitamin D2, 1,25 (OH)2 20 pg/mL; Vitamin D3, 1,25 (OH)2 <8 pg/mL
[2025-09-06 06:44] LABS: Vitamin B6, Plasma* 30.4 ng/mL (2.1-21.7)
== END | disposition home or self-care (01) ==
LOC: COPL 09:10
PROVIDERS: PCP Family Medicine; Referring Provider Surgery; Visit Provider Surgery
DX: B37.49 Other urogenital candidiasis (principal); R73.09 Other abnormal glucose; Z98.84 Bariatric surgery status
CPT/HCPCS: 36415; 81001; 82652; 83036; 84207; 87086

== ENCOUNTER → 2025-09-25 | Outpatient (CLI) | payer MEDICARE, BC, SELFPAY ==
--- NOTE | 2025-09-25 10:30 | XR_ITS ---
Examination: Screening digital mammography, bilateral Computer aided detection 3-D breast Tomosynthesis, bilateral Date and time of exam: September 25, 2025, 10:26 a.m., compared to mammograms dating to November 22, 2019 Indication: Screening Technique: Nonmagnified MLO, CC views of the breasts to been obtained, reconstructed from 3-D Tomosynthesis images. R2 computer aided detection program utilized for evaluation of suspicious masses and/or abnormal calcifications. 3-D Tomosynthesis images obtained. Findings: The breasts are heterogeneously dense, which may obscure small masses Benign calcifications No interval suspicious masses Impression: BI-RADS category II: Benign Findings. Recommend 1 year follow-up mammogram.
== END | disposition home or self-care (01) ==
LOC: CDIM 10:18
PROVIDERS: PCP Family Medicine; Referring Provider Family Medicine; Visit Provider Family Medicine
DX: Z12.31 Encounter for screening mammogram for malignant neoplasm of breast (principal); R92.323 Mammographic fibroglandular density, bilateral breasts; R92.1 Mammographic calcification found on diagnostic imaging of breast
CPT/HCPCS: 77063; 77067